=== PATIENT | female | born 1995 ===

== ENCOUNTER 2017-05-25 15:56 | Emergency (ER) | payer BC ==
[2017-05-25 16:27] VITALS: BP 92/62
--- NOTE | 2017-05-25 16:50 | UC ---
FLU HPI - HPI Summary HPI Summary: 21 y/o female presents to the urgent care c/o body aches , cold and chills, sore throat since 05/22/2017. Pt states mild headache. Pain with swallowing is 6 /10. She took Advil 400mg to alleviate symptoms around 1300 today. Pt also states subjective fever at home. Pt denies SOB, nasal congestion, cough, chest pain, abdominal pain, N/V/D. Pt states Hx of a tick bite over the summer and never took prophylactic treatment. She hasn't noticed a rash. - History of Current Complaint Hx Obtained From: Patient Onset/Duration: Gradual Onset, Lasting Days - 3 days, Still Present Severity Currently: Mild Severity Initially: Moderate Pain Intensity: 6 Pain Scale Used: 0-10 Numeric Associated Signs & Symptoms: Positive: Fever, Myalgia, Sore Throat, Headache - Risk Factors Influenza Risk Factors: Negative <Richa Arambula - Last Filed: 05/25/17 17:47> <Linda De Santiago - Last Filed: 05/25/17 17:59> - History of Current Complaint Chief Complaint: UCRespiratory Stated Complaint: FLU-LIKE Time Seen by Provider: 05/25/17 16:46 - Allergy/Home Medications Allergies/Adverse Reactions: Allergies Allergy/AdvReac Type Severity Reaction Status Date / Time No Known Allergies Allergy Verified 05/25/17 16:27 Home Medications: Home Medications Norethin Acet & Estrad-Fe [07/18 1-20 mg-Mcg] 1 tab PO 05/25/17 [History ] PMH/Surg Hx/FS Hx/Imm Hx Previously Healthy: Yes - Pt denies PMHX - Surgical History Surgical History: None - Family History Known Family History: Positive: Respiratory Disease - Asthma - Social History Occupation: Student Lives: With Family Alcohol Use: Weekly Substance Use Type: None Smoking Status (MU): Never Smoked Tobacco <Richa Arambula - Last Filed: 05/25/17 17:47> Review of Systems Constitutional: Fever, Chills, Other - body aches, myalgias Skin: Negative Eyes: Negative ENT: Sore Throat, Ear Ache - left ear pain Respiratory: Negative Cardiovascular: Negative Gastrointestinal: Negative Genitourinary: Negative Motor: Negative Neurovascular: Negative Musculoskeletal: Negative Neurological: Headache Psychological: Negative Is Patient Immunocompromised?: No All Other Systems Reviewed And Are Negative: Yes <Foster-SnowdenRicha colon - Last Filed: 05/25/17 17:47> Physical Exam Triage Information Reviewed: Yes Vital Signs: Initial Vital Signs Temp 98.1 F 05/25/17 16:24 Pulse 106 05/25/17 16:24 Resp 18 05/25/17 16:24 BP 92/62 05/25/17 16:24 Pulse Ox 100 05/25/17 16:24 - Additional Comments VITAL SIGNS: Reviewed. GENERAL: Patient is a well developed and nourished female who is sitting comfortable in the examining table. Patient is not in any acute respiratory distress. HEAD AND FACE: No signs of trauma. No ecchymosis, hematomas or skull depressions. No sinus tenderness. EYES: PERRLA, EOMI x 2, No injected conjunctiva, no nystagmus. No photophobia. EARS: Hearing grossly intact. Ear canals and tympanic membranes are within normal limits. MOUTH: Positive pharynx with erythema, no exudates, mild palatal petechiae. B/L tonsillar enlargement with no exudate. Uvula in midline. NECK: Supple, trachea is midline, Positive anterior cervical lymphadenopathy, no JVD, no carotid bruit, no c-spine tenderness, neck with full ROM. No meningeal signs, no Kernig's or brudzinskis signs. CHEST: Symmetric, no tenderness at palpation LUNGS: Clear to auscultation bilaterally. No wheezing or crackles. CVS: Regular rate and rhythm, S1 and S2 present, no murmurs or gallops appreciated. ABDOMEN: Soft, non-tender. No signs of distention. No rebound no guarding, and no masses palpated. Bowel sounds are normal. EXTREMITIES: FROM in all major joints, no edema, no cyanosis or clubbing. NEURO: Alert and oriented x 3. No acute neurological deficits. Speech is normal and follows commands. SKIN: Dry and warm <Timi Arambulaha - Last Filed: 05/25/17 17:47> Vital Signs: Initial Vital Signs Temp 98.1 F 05/25/17 16:24 Pulse 106 05/25/17 16:24 Resp 18 05/25/17 16:24 BP 92/62 05/25/17 16:24 Pulse Ox 100 05/25/17 16:24 <Linda De Santiago - Last Filed: 05/25/17 17:59> Flu Course/Dx - Course Course Of Treatment: 21 y/o female presents to the urgent care c/o body aches , cold and chills, sore throat since 05/22/2017. Pt states mild headache. Pain with swallowing is 6/10. She took Advil 400mg to alleviate symptoms around 1300 today. Pt also states subjective fever at home. Pt denies SOB, nasal congestion , cough, chest pain, abdominal pain, N/V/D. Pt states Hx of a tick bite over the summer and never took prophylactic treatment. She hasn't noticed a rash. Hx obtained. Rapid strep ordered, result: negative. Influenza A&B ordered, result: negative. Pt with HX of recent tick bite that was there for >48hrs and w/o prophylactic treatment. lyme serology ordered r/o Lyme disease. Pt educated on Lyme.Pt Rx ibuprofen PO to alleviates symptoms of pain and swelling. Advised on hand washing to avoid spreading. Pt advised to rest, eat well and avoid strenuous exercise. If symptoms do not improve or worsen advised to return to the urgent care or f/u with her PCP for further evaluation and treatment. Pt understood and agreed - Differential Dx/Diagnosis Differential Diagnosis/HQI/PQRI: Influenza, Pneumonia, Upper Respiratory Infection, Other - pharyngitis, laryngitis, lyme disease Provider Diagnoses: 1-Pharyngitis. 2-Fever, headache, Hx of tick bite recently r/o lyme disease <Richa Arambula - Last Filed: 05/25/17 17:47> Discharge <Richa Arambula - Last Filed: 05/25/17 17:47> <Linda De Santiago - Last Filed: 05/25/17 17:59> - Discharge Plan Condition: Stable Disposition: HOME Prescriptions: Ibuprofen TAB* [Motrin TAB* 800 MG] 800 mg PO Q6H #20 tab Patient Education Materials: Lyme Disease (ED), Pharyngitis (ED) Forms: *School Release Referrals: [facility] [place] [facility] [Outside] - 1 Week Additional Instructions: 1-Please take ibuprofen PO q6-8hrs prn as instructed after meals to alleviate pain and swelling. Increase fluid intake, eat well, rest and avoid strenuous exercise 2-If symptoms do not improve or worsen please return to the urgent care or f/u with your PCP for further evaluation and treatment. 3- Lyme serology was sent to lab to r/o Lyme disease since Hx of tick bite. You will be notified of any result. If positive please f/u with PCP for further evaluation and treatment Attestation Statement User Type: Provider - I was available for consult. This patient was seen by the [place]. The patient was not presented to, seen by, or examined by me. -Lanette <Linda De Santiago - Last Filed: 05/25/17 17:59>
--- NOTE | 2017-05-27 18:01 | UC ---
Progress - Progress Note Progress Note: Lyme test was negative. Please let her know. If still symptomatic - f/u with PCP. <Misael Baca - Last Filed: 05/27/17 18:01> Attestation Statement User Type: Provider - I was available for consult. This patient was seen by the [place]. The patient was not presented to, seen by, or examined by me. -Lanette <Linda De Santiago - Last Filed: 05/28/17 14:18>
== END 2017-05-25 17:32 | disposition home or self-care (01) ==
LOC: UCEAST 15:56
DX: J02.9 Acute pharyngitis, unspecified (principal); R50.9 Fever, unspecified; R51 Headache; Z20.818 Contact with and (suspected) exposure to other bacterial communicable diseases
CPT/HCPCS: 86618; 87502; 87651; 99202; G0463